=== PATIENT | female | born 1945 | race Native Hawaiian/Other Pacific Islander ===

== ENCOUNTER 2018-03-25 14:18 | Emergency (ER) | payer OTHER ==
[~2018-03-25] VITALS: Ht 165.1 cm; Wt 77.1 kg
[2018-03-25 15:55] VITALS: BP 136/64; TEMP 97
== END 2018-03-25 15:56 | disposition home or self-care (01) ==
LOC: ED 14:18
DX: J11.1 Influenza due to unidentified influenza virus with other respiratory manifestations (principal)
CPT/HCPCS: 87502; 99283

== ENCOUNTER 2019-12-03 12:01 | Outpatient (CLI) | payer OTHER | END 2019-12-03 19:11 | disposition home or self-care (01) | LOC: RAD 12:01 | DX: R05 Cough (principal) ==

== ENCOUNTER 2020-03-02 12:36 | Outpatient (CLI) | payer OTHER | END 2020-03-02 20:41 | disposition home or self-care (01) | LOC: RESP 12:36 | PROVIDERS: ATTEND Internal Medicine Sleep Medicine | DX: J45.909 Unspecified asthma, uncomplicated (principal) ==

== ENCOUNTER 2020-03-13 23:04 | Emergency (ER) | payer OTHER ==
[~2020-03-13] VITALS: Ht 165.1 cm; Wt 81.6 kg
[2020-03-14 00:16] LABS: PLATELET COUNT 309 K/uL (152-353)
[2020-03-14 00:28] LABS: POTASSIUM 4.2 mmol/L (3.6-5.2); SODIUM 137 mmol/L (136-145)
[2020-03-14 02:15] VITALS: BP 153/66; TEMP 98.6
== END 2020-03-14 02:15 | disposition home or self-care (01) ==
LOC: ED 23:04
PROVIDERS: Family Medicine
DX: R07.89 Other chest pain (principal); M25.512 Pain in left shoulder; M62.838 Other muscle spasm; Z03.818 Encounter for observation for suspected exposure to other biological agents ruled out
CPT/HCPCS: 80053; 84484; 85027; 87635; 93005; 96374; 96375; 99284; J1885; U0003

== ENCOUNTER 2020-12-13 09:57 | Emergency (ER) | payer OTHER ==
[~2020-12-13] VITALS: Ht 165.1 cm; Wt 77.1 kg
[2020-12-13 10:07] VITALS: BP 163/73; TEMP 97.3
== END 2020-12-13 11:29 | disposition home or self-care (01) ==
LOC: ED 09:57
DX: J45.901 Unspecified asthma with (acute) exacerbation (principal)
CPT/HCPCS: 87502; 87635; 94664; 99283; U0003

== ENCOUNTER 2021-01-22 08:02 | Outpatient (CLI) | payer OTHER | END 2021-01-22 19:00 | disposition home or self-care (01) | LOC: CT 08:02 | PROVIDERS: ATTEND Family Medicine | DX: R05.3 Chronic cough (principal) | CPT/HCPCS: 36415; 82565; 84520; Q9963 ==